=== PATIENT | female | born 1945 | race Caucasian/White ===

== ENCOUNTER → 2020-12-02 | Day surgery (SDC) | payer MEDICARE, OTHER ==
[~2020-12-02] MED LIST: ASCORBIC ACID500 MG PO; CORTEF10 MG PO; DICLOFENAC SODI75 MG PO; EFFER-K 20 MEQ20 MEQ PO; LASIX40 MG PO; PAIN RELIEF500 M1 PO; PERCOCET 5-3251 EACH PO; SYNTHROID50 MCG PO; VITAMIN D325 MC4 PO
[2020-12-02 08:31] LABS: HCT 38.9 % (37.0-47.0); HGB 12.8 g/dl (12.5-16.0); MCH 30.8 pg (25.0-31.0); MCHC 32.9 g/dL (32.0-36.0); MCV 93.7 fL (78.0-100.0); MPV 9.4 fL (6.0-9.5); RBC 4.15 M/uL (4.20-5.40); RDW 12.9 % (11.5-14.0); WBC 6.8 K/uL (4.0-10.5)
[2020-12-02 08:50] LABS: ALBUMIN 3.6 g/dL (3.4-5.0); BILIRUBIN - TOTAL 0.3 mg/dL (0.2-1.0); BUN/CREAT RATIO (CALC) 18.8 RATIO; CREATININE 0.8 mg/dL (0.51-0.95); GLOBULIN (CALCULATION) 3.3 g/dL; POTASSIUM 3.8 mmol/L (3.5-5.1); TOTAL PROTEIN 6.9 g/dL (6.4-8.2)
== END | disposition home or self-care (01) ==
LOC: FAS 07:45
PROVIDERS: Orthopaedic Surgery
DX: S83.271A Complex tear of lateral meniscus, current injury, right knee, initial encounter (principal); M17.11 Unilateral primary osteoarthritis, right knee; M23.41 Loose body in knee, right knee; M22.41 Chondromalacia patellae, right knee; M25.861 Other specified joint disorders, right knee; I10 Essential (primary) hypertension; E78.00 Pure hypercholesterolemia, unspecified; E03.9 Hypothyroidism, unspecified; J45.909 Unspecified asthma, uncomplicated; M25.461 Effusion, right knee; Z79.899 Other long term (current) drug therapy; Z88.0 Allergy status to penicillin
CPT/HCPCS: 36415; 71045; 80053; 93005; J2250; J2930; J3010; J7120